=== PATIENT | male | born 1990 | race Caucasian/White ===

== ENCOUNTER 2017-08-05 14:36 | Emergency (ER) | payer BC ==
[~2017-08-05] VITALS: Ht 170.2 cm; Wt 65.8 kg
[2017-08-05 14:40] VITALS: BP_SYST 134
--- NOTE | 2017-08-05 14:40 | NUR ---
Patient triaged and placed in waiting room. VSS and patient appears in no acute distress at this time. Accompanied by SELF, awaiting available bed, and MD notified of need for MSE.
--- NOTE | 2017-08-05 16:43 | NUR ---
Pt to [facility].
--- NOTE | 2017-08-05 16:45 | NUR ---
Pt c/o sore throat with swollen tonsils x 2 weeks, pain worse with swallowing. Airway patent.
--- NOTE | 2017-08-05 16:50 | NUR ---
BASILIO Pham at chair side to assess pt. Redness noted to back of throat, tonsils swollen with yellow pus pocket noted to left tonsil.
[2017-08-05] MEDS ORDERED: PENICILLIN G BENZATHINE 1.2 MMU/2 ML SYR IM ONE ×2 (17:00→17:15)
[2017-08-05] MEDS ORDERED: KETOROLAC TROMETHAMINE 60 MG/2 ML VIAL IM ONE (17:00)
[2017-08-05] MEDS ORDERED: DEXAMETHASONE SOD PHOSPHATE 10 MG/ML VIAL IM ONE (17:00)
--- NOTE | 2017-08-05 17:32 | NUR ---
Kirt, [employer] to josemanuel during IM medication administrations.
[2017-08-05 17:45] VITALS: BP_SYST 128
--- NOTE | 2017-08-05 17:45 | NUR ---
Patient given written and verbal discharge instructions and verbalizes understanding. ER MD discussed with patient the results and treatment provided. Patient in stable condition. ID arm band removed. Rx of Motrin and Prednison given. Patient educated on pain management and to follow up with PMD. Pain Scale 4/10. Opportunity for questions provided and answered.
== END 2017-08-05 17:45 | disposition home or self-care (01) ==
LOC: SED 14:36
DX: J03.90 Acute tonsillitis, unspecified (principal); R03.0 Elevated blood-pressure reading, without diagnosis of hypertension
CPT/HCPCS: 96372; 99284; J0561; J1100; J1885

== ENCOUNTER 2019-08-09 09:16 | Emergency (ER) | payer SELFPAY ==
[~2019-08-09] VITALS: Ht 170.2 cm; Wt 65.8 kg
[2019-08-09 09:16] VITALS: BP_SYST 159
--- NOTE | 2019-08-09 09:20 | NUR ---
Patient triaged and placed in waiting room. VSS and patient appears in no acute distress at this time. Accompanied by FRIEND, awaiting available bed, and MD notified of need for MSE.
--- NOTE | 2019-08-09 10:09 | NUR ---
BROUGHT BACK TO BED #7 AND TRIAGED. REPORT GIVEN TO KALEY
[2019-08-09 10:58] LABS: BASOPHILS % (AUTO) 0.3 % (0.0-2.0); EOSINOPHILS % (AUTO) 1.4 % (0.0-4.0); HEMATOCRIT 45.2 % (36-54); HEMOGLOBIN 15.8 g/dL (14.0-18.0); LYMPHOCYTES # (AUTO) 0.7 K/uL (1.0-5.5); LYMPHOCYTES % (AUTO) 21.8 % (20.5-51.5); MEAN CORPUSCULAR HEMOGLOBIN 34 pg (27-31); MEAN CORPUSCULAR HGB CONC 35 % (32-36); MEAN CORPUSCULAR VOLUME 98 fL (79.0-98.0); MONOCYTES # (AUTO) 0.5 K/uL (0.0-1.0); MONOCYTES % (AUTO) 14.8 % (1.7-9.3); NEUTROPHILS # (AUTO) 1.9 K/uL (1.8-7.7); NEUTROPHILS % (AUTO) 61.7 % (40.0-70.0); RED BLOOD CELL COUNT(AUTO) 4.61 MIL/uL (4.2-6.2); RED CELL DISTRIBUTION WIDTH 13.7 % (9.0-15.0); WHITE BLOOD COUNT (AUTO) 3.1 K/uL (4.8-10.8)
--- NOTE | 2019-08-09 11:20 | NUR ---
PATIENT PRESENTS TO THE ER WITH ECCYMOTIC REGIONS TO BOTH HIPS, RIGHT ELBOW AND RIGHT SHOULDER FOR UP TO 4 DAYS; NO TRAUMA, NO OTHER REMARKABLE S/S; ERMD EVALUATION AT 1110 AND PATIENT TO BED #7 AT 1030
[2019-08-09 11:22] LABS: PLATELET COUNT (AUTO) 59 K/uL (130-430)
[2019-08-09 11:24] LABS: CALCIUM 8.6 mg/dL (8.4-11.0); CREATININE 0.87 mg/dL (0.55-1.30); POTASSIUM 4.4 mmol/L (3.5-5.1)
[2019-08-09 11:27] LABS: PROTHROMBIN TIME 9.8 SECS (9.5-12.5)
[2019-08-09 11:29] LABS: ALBUMIN 4.3 g/dL (3.4-4.8); TOTAL BILIRUBIN 1.7 mg/dL (0.0-1.0)
--- NOTE | 2019-08-09 11:50 | NUR ---
Patient given written and verbal discharge instructions and verbalizes understanding. ER MD discussed with patient the results and treatment provided. Patient in stable condition. ID arm band removed. Rx of NONE given. Patient educated on pain management and to follow up with PMD. Pain Scale 0/10. Opportunity for questions provided and answered. Medication side effect fact sheet provided. PT ENCOURAGED TO FOLLOW UP WITH PMD OR HEATER TENDER
[2019-08-09 11:51] VITALS: BP_SYST 134
== END 2019-08-09 11:50 | disposition home or self-care (01) ==
LOC: SED 09:16
DX: D69.6 Thrombocytopenia, unspecified (principal); K76.89 Other specified diseases of liver; R03.0 Elevated blood-pressure reading, without diagnosis of hypertension; J45.909 Unspecified asthma, uncomplicated
CPT/HCPCS: 36415; 80053; 85025; 85610-TC; 85730-TC; 99283

== ENCOUNTER 2020-04-29 02:40 | Emergency (ER) | payer OTHER ==
[~2020-04-29] VITALS: Ht 170.2 cm; Wt 68.0 kg
[2020-04-29 02:50] VITALS: BP_SYST 145
[2020-04-29] MEDS ORDERED: MAGNESIUM SULFATE 1 GM/2 ML VIAL ONE (03:33)
[2020-04-29] MEDS ORDERED: FOLIC ACID 5 MG/ML VIAL IV ONE (03:33)
[2020-04-29] MEDS ORDERED: THIAMINE HCL 100 MG/ML VIAL ONE (03:33)
[2020-04-29] MEDS ORDERED: MVI 10 ML VIAL IV ONE (03:33)
[2020-04-29 03:38] LABS: HEMATOCRIT 49.9 % (36-54); HEMOGLOBIN 16.9 g/dL (14.0-18.0); MEAN CORPUSCULAR HEMOGLOBIN 32 pg (27-31); MEAN CORPUSCULAR HGB CONC 34 % (32-36); MEAN CORPUSCULAR VOLUME 95 fL (79.0-98.0); PLATELET COUNT (AUTO) 201 K/uL (130-430); RED BLOOD CELL COUNT(AUTO) 5.27 MIL/uL (4.2-6.2); RED CELL DISTRIBUTION WIDTH 13.2 % (9.0-15.0); WHITE BLOOD COUNT (AUTO) 20.7 K/uL (4.8-10.8)
[2020-04-29] MEDS: ONDANSETRON HCL 4 MG/2 ML VIAL IVP ONE (03:40)
[2020-04-29] MEDS: PANTOPRAZOLE SODIUM 40 MG/VIAL (PROTONIX) IVP ONE (03:44)
[2020-04-29] MEDS: LORazepam 2 MG/ML VIAL IVP ONE (03:49)
[2020-04-29 03:51] LABS: ANION GAP 34 (5-15); CALCIUM 9.4 mg/dL (8.4-11.0); CHLORIDE 90 mmol/L (98-107); CREATININE 1.36 mg/dL (0.55-1.30); GLUCOSE 172 mg/dL (70-99); POTASSIUM 4.2 mmol/L (3.5-5.1); SODIUM SERUM 137 mmol/L (136-145); UREA NITROGEN, BLOOD 19 mg/dL (8-21)
[2020-04-29] MEDS: FOLIC ACID 1 MG, THIAMINE HCL 100 MG, MAGNESIUM SULFATE 1 GM, MVI 10 ML in NACL 0.9% 1,... IV ONE (03:53)
[2020-04-29 03:54] LABS: PROTHROMBIN TIME 10.3 SECS (9.5-12.5)
[2020-04-29 03:57] LABS: ALANINE AMINOTRANSFERASE 38 U/L (12-78); ALBUMIN 5.1 g/dL (3.4-4.8); ASPARTATE AMINOTRANSFERASE 40 U/L (10-37); LIPASE 484 U/L (73-393); TOTAL BILIRUBIN 2.9 mg/dL (0.0-1.0)
[2020-04-29 03:58] LABS: ALCOHOL, BLOOD < 3 mg/dL (<10); GFR AFRICAN AMERICAN 81 mL/min (>90)
[2020-04-29 04:04] LABS: ATYPICAL LYMPHOCYTES % 0 % (0-0); BAND % (MANUAL) 2 % (0-6); BASOPHILS % (MANUAL) 0 % (0-2); EOSINOPHILS % (MANUAL) 0 % (0-7); LYMPHOCYTES % (MANUAL) 1 % (20-46); MONOCYTES % (MANUAL) 5 % (0-11)
[2020-04-29 04:59] LABS: BILIRUBIN,URINE 2+ (NEGATIVE); BLOOD, URINE 2+ (NEGATIVE); CLARITY/URINE CLEAR (CLEAR); COLOR,URINE YELLOW (YELLOW); GLUCOSE,URINE NEGATIVE (NEGATIVE); KETONES,URINE 3+ (NEGATIVE); LEUKOCYTE ESTERASE ,URINE NEGATIVE (NEGATIVE); NITRITE, URINE NEGATIVE (NEGATIVE); PH,URINE 5.5 (5.0-8.0); PROTEIN URINE 2+ (NEGATIVE); UROBILINOGEN,URINE 0.2 (0.2-1.0)
[2020-04-29] MEDS: chlordiazePOXIDE HCL 25 MG CAPSULE PO ONE ×2 (05:09→05:58)
[2020-04-29 05:19] LABS: BARBITURATE, URINE NEGATIVE (NEG <=200); BENZODIAZEPINE, URINE POSITIVE (NEG <=150); CANNABINOID, URINE POSITIVE (NEG <=50); COCAINE, URINE NEGATIVE (NEG <=150); METHAMPHETAMINES SCREEN,URINE NEGATIVE (NEG <=500); OPIATE, URINE NEGATIVE (NEG <=100); PHENCYCLIDINE SCREEN,URINE NEGATIVE (NEG <=25); UR TRICYCLIC ANTIDEPRESSANTS NEGATIVE (NEG <=300); URINE AMPHETAMINE NEGATIVE (NEG <=500); URINE METHADONE NEGATIVE (NEG <=200); URINE OXYCODONE SCREEN NEGATIVE (NEG <=100); URINE PROPOXYPHENE SCREEN NEGATIVE (NEG <=300)
[2020-04-29 05:27] LABS: WBC,URINE 0-3 /HPF (0-3)
[2020-04-29 05:28] LABS: BACTERIA,URINE FEW /HPF (None Seen)
[2020-04-29 07:00] VITALS: BP_SYST 128
== END 2020-04-29 07:00 | disposition home or self-care (01) ==
LOC: SED 02:40
DX: F10.239 Alcohol dependence with withdrawal, unspecified (principal); R10.13 Epigastric pain; D72.829 Elevated white blood cell count, unspecified; R11.2 Nausea with vomiting, unspecified; J45.909 Unspecified asthma, uncomplicated; Y90.0 Blood alcohol level of less than 20 mg/100 ml
CPT/HCPCS: 36415; 80053; 80307; 81000; 83690; 85007; 85027; 85610; 93005; 96365; 96366; 96375; 99285; C9113; G0482; J2060; J2405; J3411; J3475; J3490; J7030